=== PATIENT | female | born 1990 | race Hispanic/Latino ===

== ENCOUNTER 2017-06-21 21:44 | Emergency (ER) | payer OTHER ==
[2017-06-21 22:19] VITALS: BP 122/82; PULSE 85; RESP 20; TEMP 97.9; O2SAT 100
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
[2017-06-21] MEDS ORDERED: Silver Sulfadiazine 1% Cream (20 gm) TOP STA (22:30)
[2017-06-21] MEDS ORDERED: Silver Sulfadiazine 1% Cream (20 gm) ONE (22:40)
[2017-06-21] MEDS ORDERED: Hydrocodone/Acetaminophen 5 mg /300 mg Tab PO STA (23:15)
[2017-06-21] MEDS ORDERED: Hydrocodone/Acetaminophen 5 mg /300 mg Tab PO ONE (23:17)
== END 2017-06-21 23:46 | disposition home or self-care (01) ==
LOC: C.ER 21:44
DX: T23.111A Burn of first degree of right thumb (nail), initial encounter (principal); T31.0 Burns involving less than 10% of body surface; X12.XXXA Contact with other hot fluids, initial encounter